=== PATIENT | female | born 1970 | race Caucasian/White ===

== ENCOUNTER 2021-06-29 12:17 | Emergency (ER) | payer SELFPAY ==
[2021-06-29] MEDS ORDERED: dexAMETHasone 10 MG/ML VIAL ONE (13:32)
[2021-06-29] MEDS ORDERED: CYCLOBENZAPRINE 10 MG TAB ONE (13:32)
--- NOTE | 2021-06-29 13:43 | RAD REPORT ---
EXAM DESCRIPTION: CT - Stone Protocol - 06/29/2021 1:26 pm CLINICAL HISTORY: Flank pain. right flank pain COMPARISON: No comparisons TECHNIQUE: Axial images were obtained without oral or IV contrast. Lack of contrast limits solid org an and vascular assessment. The [id number] spans the entirety of the system partially obscuring uppermost abdomen and lung bases. Coronal reformatted images were obtained and reviewed. All CT scans are performed using dose optimization technique as appropriate and may include automated exposure control or mA/KV adjustment according to patient size. FINDINGS: Mild linear atelectasis is present in the posterior left base. Low-density hepatic lesions are present favored to represent cysts. No aggressive liver lesion or deepthi iary dilatation. The spleen is unremarkable. The pancreas and adrenal glands are normal. No pathologi c lymphadenopathy in the abdomen or pelvis. No urinary tract stones or obstructive uropathy. No bowel obstruction, free air, free fluid or abscess. Normal appendix noted. Moderate lower lumbar degenerative changes are present. IMPRESSION: No urinary tract stones or obstructive uropathy.
[2021-06-29 13:59] LABS: Urine Blood Negative (Negative); Urine Glucose Negative (Negative); Urine Protein Negative (Negative); Urine Specific Gravity 1.015 (1.005-1.030)
--- NOTE | 2021-06-29 14:46 | ER ---
Nurse's Notes [facility] Name: Laisha Carl Age: 51 yrs Sex: Female : 1970 Arrival Date: 06/29/2021 Time: 12:22 Bed 24 Private MD: Diagnosis: Intervertebral disc disorders with radiculopathy, lumbar region Presentation: 06/29 12:30 Chief complaint: Patient states: R lower back pain for 2 days. Pain radiates into R ll1 leg. No trauma or falls. States she feels anxious for about 1 hour. Noticed dysuria yesterday. Coronavirus screen: Vaccine status: Patient reports receiving the 2nd dose of the covid vaccine. Client denies travel out of the [place] in the last 14 days. At this time, the client does not indicate any symptoms associated with coronavirus-19. Ebola Screen: Patient denies travel to an Ebola-affected area in the 21 days before illness onset. Initial Sepsis Screen: Does the patient meet any 2 criteria? No. Patient's initial sepsis screen is negative. Does the patient have a suspected source of infection? Yes: Bone or joint infection. Risk Assessment: Do you want to hurt yourself or someone else? Patient reports no desire to harm self or others. Onset of symptoms was June 28, 2021. 12:30 Method Of Arrival: Wheelchair ll1 12:30 Acuity: VERONICA 3 ll1 Triage Assessment: 14:43 General: Appears uncomfortable, Behavior is cooperative, appropriate for age. oh 14:44 Musculoskeletal: Swelling. 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 - Social history:: Smoking status: Patient reports the use of cigarette tobacco products, smokes one-half pack cigarettes per day, Reported history of juuling and/or vaping. - Family history:: not pertinent. - Hospitalizations: : No recent hospitalization is reported. Screenin:43 Abuse screen: Denies threats or abuse. Nutritional screening: No deficits noted. oh Tuberculosis screening: No symptoms or risk factors identified. Fall Risk Gait-. Assessment: 14:41 Musculoskeletal: Reports pain in back lower pt denies any recent injury. pt has a patch oh to back to soothe her pain. difficulty with ambulation. Vital Signs: 12:30 BP 136 / 81; Pulse 63; Resp 16; Temp 97.6; Pulse Ox 100% ; Weight 79.38 kg; Height 5 ll1 ft. 8 in. (172.72 cm); Pain 9/10; 14:57 BP 107 / 66; Pulse 71; Resp 16; Pulse Ox 100% on R/A; oh 12:30 Body Mass Index 26.61 (79.38 kg, 172.72 cm) ll1 ED Course: 12:22 Patient arrived in ED. mr 12:33 Triage completed. ll1 12:34 Arm band placed on Patient placed in an exam room, on a stretcher. ll1 12:38 Arvind Martell MD is Attending Physician. rn 13:05 Jose Maria Mejía, TAYLOR is Primary Nurse. oh 13:26 CT Stone Protocol In Process Unspecified. EDOK 14:43 Bed in low position. Call light in reach. oh 14:57 Patient did not have IV access during this emergency room visit. oh 14:57 No provider procedures requiring assistance completed. oh Administered Medications: 13:13 Drug: Decadron (dexamethasone) 10 mg Route: IM; Site: right gluteus; oh 13:14 Drug: Flexeril (cyclobenzaprine) 10 mg Route: PO; oh Outcome: 14:46 Discharge ordered by . rn 14:57 Discharged to home ambulatory. oh 14:57 Condition: stable 14:57 Discharge instructions given to patient. 14:58 Patient left the ED. oh Signatures: Dispatcher [employer] [facility] DouglasLizett mr Arvind Martell MD MD rn Lewis, Lynsay, RN RN 1 Jose Maria Mejía, TAYLOR RN oh Corrections: (The following items were deleted from the chart) 12:41 12:30 Chief complaint: Patient states: R lower back pain for 2 days. Pain radiates into ll1 R leg. States she feels anxious for about 1 hour. Noticed dysuria yesterday. ll1
--- NOTE | 2021-06-29 14:46 | EDPHYS ---
Physician Documentation [facility] Name: Laisha Carl Age: 51 yrs Sex: Female : 1970 Arrival Date: 06/29/2021 Time: 12:22 Bed 24 Private MD: ED Physician Arvind Martell HPI: 06/29 14:42 This 51 yrs old Female presents to ER via Wheelchair with complaints of Back rn Pain. 14:42 The patient presents with pain that is acute. The patient presents with pain that is consultant rn, with no known mechanism of injury. The symptoms are located in the low back. Onset: The symptoms/episode began/occurred 2 day(s) ago. The pain radiates to the right leg. Associated signs and symptoms: Pertinent negatives: abdominal pain, dysuria, fever, hematuria, incontinence, nausea, numbness, tingling. Associated signs and symptoms: Pertinent negatives: urinary retention. The problem was sustained without known cause. Modifying factors: The patient symptoms are alleviated by nothing, the patient symptoms are aggravated by any movement. Severity of symptoms: At their worst the symptoms were moderate, in the emergency department the symptoms are unchanged. The patient has experienced similar episodes in the past. The patient has not recently seen a physician. Patient reports right lower back pain that radiates down right leg for the last 2 days. No acute trauma. No injury. Denies any urinary or bowel incontinence or retention. Reports has been seen for this and x-ray was okay went to a chiropractor but could not tolerate manipulation. Here because of increased pain over the last 2 days.. 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 - Social history:: Smoking status: Patient reports the use of cigarette tobacco products, smokes one-half pack cigarettes per day, Reported history of juuling and/or vaping. - Family history:: not pertinent. - Hospitalizations: : No recent hospitalization is reported. ROS: 14:42 Constitutional: Negative for fever, chills, and weight loss, Eyes: Negative for injury, rn pain, redness, and discharge, Neck: Negative for injury, pain, and swelling, Cardiovascular: Negative for chest pain, palpitations, and edema, Respiratory: Negative for shortness of breath, cough, wheezing, and pleuritic chest pain, Abdomen/GI: Negative for abdominal pain, nausea, vomiting, diarrhea, and constipation, Back: Positive for right lower back pain : Negative for injury, bleeding, discharge, and swelling, MS/Extremity: Positive for right lower extremity pain Skin: Negative for injury, rash, and discoloration, Neuro: Negative for headache, weakness, numbness, tingling, and seizure. Exam: 14:42 Constitutional: This is a well developed, well nourished patient who is awake, alert, rn appears uncomfortable Cardiovascular: Regular rate and rhythm. No pulse deficits. Respiratory: No increased work of breathing, no retractions or nasal flaring. Abdomen/GI: Soft, nontender Back: No spinal tenderness. No costovertebral tenderness. Painful twisting range of motion and mild tenderness right lower back Skin: Warm, dry with normal turgor. Normal color with no rashes, no lesions, and no evidence of cellulitis. MS/ Extremity: Pulses equal, no cyanosis. Neurovascular intact. Full, normal range of motion. Equal circumference. Positive straight leg raise and opposite leg raise Neuro: Awake and alert, GCS 15, oriented to person, place, time, and situation. Cranial nerves II-XII grossly intact. Motor strength 5/5 in all extremities. Sensory grossly intact. Cerebellar exam normal. Vital Signs: 12:30 BP 136 / 81; Pulse 63; Resp 16; Temp 97.6; Pulse Ox 100% ; Weight 79.38 kg; Height 5 ll1 ft. 8 in. (172.72 cm); Pain 9/10; 14:57 BP 107 / 66; Pulse 71; Resp 16; Pulse Ox 100% on R/A; oh 12:30 Body Mass Index 26.61 (79.38 kg, 172.72 cm) ll1 MDM: 12:38 Patient medically screened. rn 14:42 Differential diagnosis: arthritis, chronic back pain, Osteoarthritis Ureterolithiasis rn Radiculopathy. Data reviewed: vital signs, nurses notes, lab test result(s), radiologic studies, CT scan, and as a result, I will discharge patient. Counseling: I had a detailed discussion with the patient and/or guardian regarding: the historical points, exam findings, and any diagnostic results supporting the discharge/admit diagnosis, lab results, radiology results, the need for outpatient follow up, to return to the emergency department if symptoms worsen or persist or if there are any questions or concerns that arise at home. Response to treatment: the patient's symptoms have mildly improved after treatment, and as a result, I will discharge patient. Special discussion: I discussed with the patient/guardian in detail that at this point there is no indication for admission to the hospital. It is understood, however, that if the symptoms persist or worsen the patient needs to return immediately for re-evaluation. Based on the history and exam findings, there is no indication for further emergent testing or inpatient evaluation. I discussed with the patient/guardian the need to see the back specialist for further evaluation of the symptoms. I discussed with the patient/guardian the need to see the primary care provider for further evaluation of the symptoms. 06/29 13:59 Order name: Urine Dipstick-Ancillary; Complete Time: 14:42 EDMS 06/29 12:49 Order name: CT Stone Protocol; Complete Time: 14:42 rn 06/29 13:46 Order name: Urine Dipstick-Ancillary (obtain specimen); Complete Time: 14:32 rn Administered Medications: 13:13 Drug: Decadron (dexamethasone) 10 mg Route: IM; Site: right gluteus; oh 13:14 Drug: Flexeril (cyclobenzaprine) 10 mg Route: PO; oh Disposition Summary: 06/29/21 14:46 Discharge Ordered Location: Home rn Problem: an ongoing problem rn Symptoms: have improved rn Condition: Stable rn Diagnosis - Intervertebral disc disorders with radiculopathy, lumbar region rn Followup: rn - With: Private Physician - When: As needed - Reason: Recheck today's complaints, Re-evaluation by your physician Discharge Instructions: - Discharge Summary Sheet rn - Lumbosacral Radiculopathy rn Forms: - Medication Reconciliation Form rn - Thank You Letter rn - 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
[2021-06-29 15:02] VITALS: TEMP 97.6; O2SAT 100
[2021-06-29 15:04] VITALS: BP 107/66
== END 2021-06-29 14:58 | disposition home or self-care (01) ==
LOC: ER 12:17
DX: M51.16 Intervertebral disc disorders with radiculopathy, lumbar region (principal); F17.210 Nicotine dependence, cigarettes, uncomplicated
CPT/HCPCS: 74176; 76377; 81003; 96372; 99283; J1100

== ENCOUNTER 2022-08-29 23:03 | Emergency (ER) | payer SELFPAY ==
--- OUTSIDE RECORDS SUMMARY | 2022-08-29 23:06 | XMS REPORT | Continuity of Care Document ---
:1970 Author Organization [facility] t Address [address] [place] [address] Dr. Sanchez [address] [place] [id number] Care Team Providers Name Role Phone EUGENIA KENDALL Attending Clinician Unavailable ALIREZA Attending Clinician Unavailable Eugenia Kendall Attending Clinician [phone] ADAN Attending Clinician Unavailable GABO Attending Clinician Unavailable Mariia Lorenzana Attending Clinician [phone] FAIZA_Abby Admitting Clinician Unavailable ADAN Admitting Clinician Unavailable GABO Admitting Clinician Unavailable Payers Payer Name Policy Type Policy Number Effective Date Expiration Date S ource Problems Condition Condition Condition Status Onset Resolution Last Treating Co mments Source Name Details Category Date Date Treatment Clinician Date Excessive Excessive Problem Active Swe salty growth of Growth of 7-11 Comm uni facial Facial 00:00: ty hair Hair 00 Hospita Clinics Hyperlipid Hyperlipid Problem Active S weeny emia emia 5-17 Communi 00:00: ty 00 Hospita Clinics Mixed Mixed Problem Active [place] anxiety Anxiety 5-05 Communi and and 00:00: ty depressive Depressive 00 Ho spita disorder Disorder l Clinics Maxillary Maxillary Problem Active Swe salty sinusitis Sinusitis 5-05 Comm uni 00:00: ty 00 Hospita Clinics Has a sore Has a Sore Problem Active S weeny throat Throat 5-05 Communi 00:00: ty Hospita Clinics Depressive Depressive Problem Active S weeny disorder Disorder 5-15 Commun i 00:00: ty 00 Hospita Clinics Vertigo Vertigo Problem Active [place] 5-15 [facility]i 00:00: ty 00 [facility]ospita Clinics Anxiety Anxiety Problem Active [place] 1-27 Communi 00:00: ty 00 Hospita Clinics Allergies, Adverse Reactions, Alerts This patient has no known allergies or adverse reactions. Social History Smoking Status Start Date Stop Date Source Light Tobacco Smoker [facility]ail [facility] Medications Ordered Filled Start Stop Current Ordering Indication Dosage Frequency Signature Comments Components Source Medication Medication Date Date Medication? Clinician (SIG) Name Name Kenalog 40 Kenalog 40 No Kenalog 40 [place] mg/mL mg/mL 7-21 mg/mL Communi suspension suspension 16:10: suspension ty for for 00 for Hospita injectionTa injectionTa injectionT l ke 60 mg by ke 60 mg by cesia 60 mg Clinics injection injection by route as route as injection directed directed route as for 1 day. for 1 day. directed for 1 day. meclizine meclizine No meclizine [place] 12.5 mg 12.5 mg 12.5 mg Commun i tablet TK 1 tablet TK 1 tablet TK ty T PO TID T PO TID 1 T PO TID H ospita PRN PRN PRN l [facility] paroxetine paroxetine No paroxetine [place] ER 12.5 mg ER 12.5 mg ER 12.5 mg Communi tablet,exte tablet,exte tablet,ext ty nded nded ended Hospita release 24 release 24 release 24 l hr TAKE 1 hr TAKE 1 hr TAKE 1 Clinics TABLET BY TABLET BY TABLET BY MOUTH ONCE MOUTH ONCE MOUTH ONCE DAILY DAILY DAILY DIRECTED DIRECTED DIRECTED FOR 30 DAYS FOR 30 DAYS FOR 30 DAYS amoxicillin amoxicillin No 1 Q12H amoxicilli [place] 875 mg 875 mg n 875 mg Communi tablet Take tablet Take tablet ty 1 tablet 1 tablet Take 1 Hospi ta every 12 every 12 tablet l hours by hours by every 12 Cli nics oral route oral route hours by as directed as directed oral route for 7 days. for 7 days. as directed for 7 days. fenofibrate fenofibrate No fenofibrat [place] nanocrystal nanocrystal e C ommuni lized 48 mg lized 48 mg nanocrysta ty tablet TAKE tablet TAKE llized 48 Hospita 1 TABLET BY 1 TABLET BY mg tablet l MOUTH ONCE MOUTH ONCE TAKE 1 C linics DAILY AT DAILY AT TABLET BY BEDTIME BEDTIME MOUTH ONCE DAILY AT BEDTIME Kenalog 40 Kenalog 40 No 60mg Kenalog 40 [place] mg/mL mg/mL mg/mL Communi suspension suspension suspension ty for for for Hospita injection injection injection l Take 60 mg Take 60 mg Take 60 mg Clinics by by by injection injection injection route as route as route as directed directed directed for 1 day. for 1 day. for 1 day. paroxetine paroxetine No paroxetine [place] ER 12.5 mg ER 12.5 mg ER 12.5 mg Communi tablet,exte tablet,exte tablet,ext ty nded nded ended Hospita release 24 release 24 release 24 l hr TAKE 1 hr TAKE 1 hr TAKE 1 Clinics TABLET BY TABLET BY TABLET BY MOUTH ONCE MOUTH ONCE MOUTH ONCE DAILY DAILY DAILY DIRECTED DIRECTED DIRECTED FOR 30 DAYS FOR 30 DAYS FOR 30 DAYS cyclobenzap cyclobenzap No cyclobenza [place] rine 10 mg rine 10 mg leighton 10 Communi tablet tablet mg tablet ty Hospita l Clinics fenofibrate fenofibrate No fenofibrat [place] nanocrystal nanocrystal e C ommuni lized 48 mg lized 48 mg nanocrysta ty tablet TAKE tablet TAKE llized 48 Hospita 1 TABLET BY 1 TABLET BY mg tablet l MOUTH ONCE MOUTH ONCE TAKE 1 C linics DAILY AT DAILY AT TABLET BY BEDTIME BEDTIME MOUTH ONCE DAILY AT BEDTIME meclizine meclizine No 1 TID meclizine [place] 12.5 mg 12.5 mg 12.5 mg Commun i tablet Take tablet Take tablet ty 1 tablet 3 1 tablet 3 Take 1 H ospita times a day times a day tablet 3 l by oral by oral times a Clinic s route as route as day by needed for needed for oral route 30 days. 30 days. as needed for 30 days. paroxetine paroxetine No paroxetine [place] ER 12.5 mg ER 12.5 mg ER 12.5 mg Communi tablet,exte tablet,exte tablet,ext ty nded nded ended Hospita release 24 release 24 release 24 l hr TAKE 1 hr TAKE 1 hr TAKE 1 Clinics TABLET BY TABLET BY TABLET BY MOUTH ONCE MOUTH ONCE MOUTH ONCE DAILY DAILY DAILY DIRECTED DIRECTED DIRECTED FOR 90 DAYS FOR 90 DAYS FOR 90 DAYS spironolact spironolact No 1 Q1D spironolac [place] one 50 mg one 50 mg tone 50 mg Communi tablet Take tablet Take tablet ty 1 tablet 1 tablet Take 1 Hospi ta every day every day tablet l by oral by oral every day Clin ics route for route for by oral 90 days. 90 days. route for 90 days. cyclobenzap cyclobenzap No cyclobenza [place] rine 10 mg rine 10 mg leighton 10 Communi tablet [facility] fenofibrate No fenofibrat [place] nanocrystal nanocrystal e C ommuni lized 48 mg lized 48 mg nanocrysta ty tablet TAKE tablet TAKE llized 48 Hospita 1 TABLET BY 1 TABLET BY mg tablet l MOUTH ONCE MOUTH ONCE TAKE 1 C linics DAILY AT DAILY AT TABLET BY BEDTIME BEDTIME MOUTH ONCE DAILY AT BEDTIME meclizine meclizine No 1 TID meclizine [place] 12.5 mg 12.5 mg 12.5 mg Commun i tablet Take tablet Take tablet ty 1 tablet 3 1 tablet 3 Take 1 H ospita times a day times a day tablet 3 l by oral by oral times a Clinic s route as route as day by needed for needed for oral route 30 days. 30 days. as needed for 30 days. paroxetine paroxetine No paroxetine [place] ER 12.5 mg ER 12.5 mg ER 12.5 mg Communi tablet,exte tablet,exte tablet,ext ty nded nded ended Hospita release 24 release 24 release 24 l hr TAKE 1 hr TAKE 1 hr TAKE 1 Clinics TABLET BY TABLET BY TABLET BY MOUTH ONCE MOUTH ONCE MOUTH ONCE DAILY DAILY DAILY DIRECTED DIRECTED DIRECTED FOR 90 DAYS FOR 90 DAYS FOR 90 DAYS spironolact spironolact No spironolac [place] one 50 mg one 50 mg tone 50 mg Communi tablet TAKE tablet TAKE tablet ty 1 TABLET BY 1 TABLET BY TAKE 1 Hospita MOUTH ONCE MOUTH ONCE TABLET BY l DAILY FOR DAILY FOR MOUTH ONCE Clinics 90 DAYS 90 DAYS DAILY FOR 90 DAYS cyclobenzap cyclobenzap No cyclobenza [place] rine 10 mg rine 10 mg leighton 10 Communi tablet tablet mg tablet ty [facility] fenofibrate fenofibrate No fenofibrat [place] nanocrystal nanocrystal e C ommuni lized 48 mg lized 48 mg nanocrysta ty tablet TAKE tablet TAKE llized 48 Hospita 1 TABLET BY 1 TABLET BY mg tablet l MOUTH ONCE MOUTH ONCE TAKE 1 C linics DAILY AT DAILY AT TABLET BY BEDTIME BEDTIME MOUTH ONCE DAILY AT BEDTIME Macrobid Macrobid No 1capsul Q12H Macrobid [place] 100 mg 100 mg e(s) 100 mg Communi capsule capsule capsule ty Take 1 Take 1 Take 1 Hospita capsule capsule capsule l every 12 every 12 every 12 Cli nics hours by hours by hours by oral route oral route oral route for 5 days. for 5 days. for 5 days. meclizine meclizine No 1 TID meclizine [place] 12.5 mg 12.5 mg 12.5 mg Commun i tablet Take tablet Take tablet ty 1 tablet 3 1 tablet 3 Take 1 H ospita times a day times a day tablet 3 l by oral by oral times a Clinic s route as route as day by needed for needed for oral route 30 days. 30 days. as needed for 30 days. Medrol Medrol No 1dose Medrol [place] (Sherwin) 4 mg (Sherwin) 4 mg pk(s) (Sherwin) 4 mg Communi tablets in tablets in tablets in ty a dose pack a dose pack a dose Hospita Take 1 dose Take 1 dose pack Take l pk by oral pk by oral 1 dose pk Clinics route as route as by oral directed. directed. route as directed. montelukast montelukast No 1 Q1D montelukas [place] 10 mg 10 mg t 10 mg Communi tablet Take tablet Take tablet ty 1 tablet 1 tablet Take 1 Hospi ta every day every day tablet l by oral by oral every day Clin ics route. route. by oral route. paroxetine paroxetine No paroxetine [place] ER 12.5 mg ER 12.5 mg ER 12.5 mg Communi tablet,exte tablet,exte tablet,ext ty nded nded ended Hospita release 24 release 24 release 24 l hr TAKE 1 hr TAKE 1 hr TAKE 1 Clinics TABLET BY TABLET BY TABLET BY MOUTH ONCE MOUTH ONCE MOUTH ONCE DAILY DAILY DAILY DIRECTED DIRECTED DIRECTED FOR 90 DAYS FOR 90 DAYS FOR 90 DAYS Ubrelvy 100 Ubrelvy 100 No 1 Ubrelvy [place] mg tablet mg tablet 100 mg Com luis Take 1 Take 1 tablet ty tablet by tablet by Take 1 Hos rosaura oral route oral route tablet by l as needed. as needed. oral route Clinics as needed. amoxicillin amoxicillin No amoxicilli [place] 875 mg 875 mg n 875 mg Communi tablet TAKE tablet TAKE tablet ty 1 TABLET BY 1 TABLET BY TAKE 1 Hospita MOUTH EVERY MOUTH EVERY TABLET BY l 12 HOURS 12 HOURS MOUTH Clinics DIRECTED DIRECTED EVERY 12 FOR 7 DAYS FOR 7 DAYS HOURS DIRECTED FOR 7 DAYS fenofibrate fenofibrate No fenofibrat [place] nanocrystal nanocrystal e C ommuni lized 48 mg lized 48 mg nanocrysta ty tablet TAKE tablet TAKE llized 48 Hospita 1 TABLET BY 1 TABLET BY mg tablet l MOUTH ONCE MOUTH ONCE TAKE 1 C linics DAILY AT DAILY AT TABLET BY BEDTIME BEDTIME MOUTH ONCE DAILY AT BEDTIME Vital Signs Vital Name Observation Time Observation Value Comments Source BP Diastolic 2022-04-24 00:00:00 66 mm[Hg] [facility] Height 2022-04-24 00:00:00 67.5 [in_i] [facility] BMI (Body Mass 2022-04-24 00:00:00 25 kg/m2 [facility] s BP Systolic 2022-04-24 00:00:00 116 mm[Hg] [facility] s Body Weight 2022-04-24 00:00:00 2594.4 [oz_av] [facility] s BP Diastolic 2022-01-24 00:00:00 71 mm[Hg] [facility] Height 2022-01-24 00:00:00 67.5 [in_i] [facility] s BMI (Body Mass 2022-01-24 00:00:00 25.9 kg/m2 [facility] s BP Systolic 2022-01-24 00:00:00 103 mm[Hg] [facility] Body Weight 2022-01-24 00:00:00 2690.4 [oz_av] [facility] s BP Diastolic 2021-11-22 00:00:00 75 mm[Hg] [facility] Height 2021-11-22 00:00:00 67.5 [in_i] [facility] BMI (Body Mass 2021-11-22 00:00:00 27.5 kg/m2 [facility]) [facility] BP Systolic 2021-11-22 00:00:00 121 mm[Hg] [facility] s Body Weight 2021-11-22 00:00:00 2847 [oz_av] [facility] s BP Diastolic 2021-04-10 00:00:00 74 mm[Hg] [facility] s Height 2021-04-10 00:00:00 67.5 [in_i] [facility] s BMI (Body Mass 2021-04-10 00:00:00 27.1 kg/m2 [facility]) [facility] s BP Systolic 2021-04-10 00:00:00 127 mm[Hg] [facility] s Body Weight 2021-04-10 00:00:00 2812.8 [oz_av] [facility] s BP Diastolic 2021-01-29 00:00:00 79 mm[Hg] [facility] s Height 2021-01-29 00:00:00 67.5 [in_i] [facility] s BP Systolic 2021-01-29 00:00:00 116 mm[Hg] [facility] s Procedures Procedure Date / Time Performed Performing Clinician Sour e MAMMO, screening, 2022-01-24 00:00:00 [facility] electrocardiogram, 2021-01-23 00[facility]00[facility] [place] min Excision of Part of [place] [facility] Right Breast [facility] Breast Surgery [facility] Plan of Care Planned Activity Planned Date Details Comments Source Diagnostic Test 2021-01-29 lipid panel w/ [facility] Pending 00:00:00 direct LDL, serum [facility] jeana [code = lipid panel w/ direct LDL, serum] Diagnostic Test 2021-01-29 CBC w/ manual diff [facility] Pending 00:00:00 [code = CBC w/ Hospital Clin ics manual diff] Diagnostic Test 2021-01-29 hepatitis (A+B+C) [facility] Pending 00:00:00 panel, serum [code Hospital Clinics = hepatitis (A+B+C) panel, serum] Diagnostic Test 2021-01-29 CMP, serum or [place] [facility] Pending 00:00:00 plasma [code = CMP, Hospital Clinics serum or plasma] Instructions [place] [facility] Encounters Start End Encounter Admission Attending Care Care Encounter Source Date/Time Date/Time Type Type Clinicians Facility Department ID 2022-09-05 Inpatient EMMA KENDALL [facility] [id number] [place] 10:00:00 EUGENIA [id number] [facility] 2022-08-29 2022-08-29 [id number] [place] 00:00:00 00:00:00 209 [facility] i [facility] Clinics 2022-04-24 2022-04-24 Outpatient FAIZA_[facility] [id number] [place] 00:00:00 00:00:00 804 Commun i ty Hospita l Clinics 2022-04-24 2022-04-24 [facility] [place] 00:00:00 00:00:00 Faiza, [facility] MSN, GRADE TAMPER, Hospital - ty THERAPEUTIC RIDING INSTRUCTOR-C: [address] [place] [facility], Clinic s [address], [facility] [address], [place], [place] MSN, THERAPEUTIC RIDING INSTRUCTOR-C [id number] , Ph. 2022-04-24 2022-04-24 Outpatient Faiza [facility] [id number] 00:00:00 00:00:00 Eugenia [id number] 2022-04-23 2022-04-23 Outpatient FAIZA_[facility] [id number] [place] 00:00:00 00:00:00 803 Commun i ty Hospita l Clinics 2022-01-24 2022-01-24 Outpatient FAIZA_C [facility] [id number] [place] 11:31:00 11:31:00 506 Commun i ty Hospita l Clinics 2022-01-24 2022-01-24 Outpatient Faiza [facility] [id number] 00:00:00 00:00:00 Eugenia [id number] 2022-01-24 2022-01-24 [facility] [place] 00:00:00 00:00:00 Faiza [facility] MSN, GRADE TAMPER, Hospital - ty THERAPEUTIC RIDING INSTRUCTOR-C: [address] [place] [facility] [address], [facility] [address], [place] MSN, THERAPEUTIC RIDING INSTRUCTOR-C [id number] , Ph. 2022-01-23 2022-01-23 Outpatient FAIZA_Abby [facility] [id number] [place] 12:35:00 12:35:00 505 Commun i ty Hospita l Clinics 2021-11-22 2021-11-22 Outpatient SISSON_Abby [facility] [id number] [place] 10:13:00 10:13:00 304 Commun i ty Hospita l Clinics 2021-11-22 2021-11-22 Outpatient Faiza [facility] [id number] 00:00:00 00:00:00 Eugenia [id number] 2021-11-22 2021-11-22 [facility] [place] 00:00:00 00:00:00 Faiza [facility] MSN, GRADE TAMPER, Hospital - ty THERAPEUTIC RIDING INSTRUCTOR-C: [address] [place] Hos[facility] N[facility], Clinic s [address], [facility] [address], [place] MSN, THERAPEUTIC RIDING INSTRUCTOR-C [phone] , Ph. 2021-11-20 2021-11-20 Outpatient SISSON_C [facility] [id number] [place] 11:52:00 11:52:00 302 Commun i ty Hospita l Clinics 2021-10-11 2021-10-11 Outpatient WATERS_S [facility] [id number] [place] 12:45:00 12:45:00 121 Commun i ty Hospita l Clinics 2021-09-25 2021-09-25 Outpatient WATERS_S [facility] [id number] [place] 05:04:00 05:04:00 105 Commun i ty Hospita l Clinics 2021-06-26 2021-06-26 [facility] 68 [place] 12:30:00 12:30:00 _L 006 Commun i ty Hospita l Clinics 2021-04-10 2021-04-10 Outpatient [facility] 68 [place] 05:07:00 05:07:00 _L 721 Commun i ty Hospita l Clinics 2021-04-10 2021-04-10 Outpatient [facility] [id number] 00:00:00 00:00:00 , Mariia [id number] Neida [id number] 2021-04-10 2021-04-10 Mariia Carrasquillo [facility] [place] 21 [place] 00:00:00 00:00:00 [facility] LORENZO harringtonP-C: [address], [place] [address] , Ph. 2021-03-05 2021-03-05 Outpatient [facility] [id number] [place] 03:00:00 03:00:00 _L 615 Commun i ty Hosp[facility] Clinics 2021-01-29 2021-01-29 Outpatient [facility] [id number] [place] 03:36:00 03:36:00 _L 511 Commun i ty Hospita l Clinics 2021-01-29 2021-01-29 Outpatient [facility] [id number] 00:00:00 00:00:00 , Mariia [id number] Neida [id number] 2021-01-29 2021-01-29 Mariia Carrasquillo [facility] [place] [facility] [place] [id number] [place] 00:00:00 [facility] Hospital - ty [address] [facility] [address], [place] [address] , Ph. 2021-01-29 2021-01-29 Outpatient [facility] 24a [id number] 00:00:00 00:00:00 , Mariia [id number] Neida [id number] 2021-01-24 2021-01-24 Outpatient [facility] [id number] [place] 12:18:00 12:18:00 _L 506 Commun i ty Hospita l Clinics 2021-01-23 2021-01-23 Outpatient [facility] [id number] [place] 10:40:00 10:40:00 _L 505 Commun i ty Hospita l Clinics 2021-01-23 2021-01-23 Outpatient [facility] [id number] 00:00:00 00:00:00 , Mariia [id number] Neida [id number] 2021-01-23 2021-01-23 Juliana [facility] [place] [facility] [place] [id number] [place] 00:00:00 [facility] Hospital - ty [address] [facility] [address], [place] [address] , Ph. 2021-01-22 2021-01-22 Outpatient [facility] 863 - [place] 03:16:00 03:16:00 _L 504 Commun i ty Hospita l Clinics Results This patient has no known results.
[2022-08-30 00:22] LABS: Hematocrit 38.1 % (36.0-45.0); Lymphocytes % 32.9 % (15.3-44.8); MCV 88.5 fL (80-100); MPV 7.7 fL (7.6-11.3)
[2022-08-30 00:44] LABS: Potassium 3.8 mmol/L (3.5-5.1); Troponin High Sensitivity 3.4 pg/mL (<58.9)
--- NOTE | 2022-08-30 04:00 | EDPHYS ---
Physician Documentation [facility] Name: Laisha Carl Age: 52 yrs Sex: Female : 1970 Arrival Date: 08/29/2022 Time: 23:05 Bed 5 Private MD: ED Physician Mirza Machado HPI: 08/30 03:21 This 52 yrs old Female presents to ER via Ambulatory with complaints of Chest Pain > 30 kdr y/o. 03:21 Patient complains of dizziness and chest pain along with shortness of breath that kdr started about 45 minutes prior to arrival. Patient's had similar episodes like this before and over the past few weeks has been seen by several physicians including at [facility] and elsewhere. Patient again presents to healthcare facility complaining of dizziness preceded by chest discomfort and shortness of breath. At the time of initial evaluation appears to have resolved.. Onset: The symptoms/episode began/occurred suddenly, just prior to arrival. Severity of symptoms: At their worst the symptoms were moderate in the emergency department the symptoms have improved moderately. The patient has experienced similar episodes in the past, multiple times, today's symptoms are similar. The patient has been recently seen by a physician: with similar presenting complaints, but the patient's symptoms have persisted. Historical: - Allergies: 08/29 23:19 No Known Drug Allergies; hb - PMHx: 23:19 Hypercholesterolemia; hb - Immunization history:: Adult Immunizations up to date. - Social history:: Smoking status: . ROS: 08/30 03:21 Constitutional: Negative for fever, chills, and weight loss, Eyes: Negative for injury, kdr pain, redness, and discharge, ENT: Negative for injury, pain, and discharge, Neck: Negative for injury, pain, and swelling, Abdomen/GI: Negative for abdominal pain, nausea, vomiting, diarrhea, and constipation, Back: Negative for injury and pain, : Negative for injury, bleeding, discharge, and swelling, MS/Extremity: Negative for injury and deformity, Skin: Negative for injury, rash, and discoloration, Neuro: Negative for headache, weakness, numbness, tingling, and seizure activity. Allergy/Immunology: Negative for hives, rash, and allergies, Endocrine: Negative for neck swelling, polydipsia, polyuria, polyphagia, and marked weight changes, Hematologic/Lymphatic: Negative for swollen nodes, abnormal bleeding, and unusual bruising. Cardiovascular: Positive for chest pain, Negative for edema, orthopnea, palpitations, paroxysmal nocturnal dyspnea. Respiratory: Positive for shortness of breath, Negative for cough, dyspnea on exertion, hemoptysis, orthopnea, pleurisy, sputum production, wheezing. Exam: 03:21 Constitutional: This is a well developed, well nourished patient who is awake, alert, kdr and in no acute distress. Head/Face: Normocephalic, atraumatic. Eyes: Pupils equal round and reactive to light, extra-ocular motions intact. Lids and lashes normal. Conjunctiva and sclera are non-icteric and not injected. Cornea within normal limits. Periorbital areas with no swelling, redness, or edema. Neck: Trachea midline, no thyromegaly or masses palpated, and no cervical lymphadenopathy. Supple, full range of motion without nuchal rigidity, or vertebral point tenderness. No Meningismus. Chest/axilla: Normal chest wall appearance and motion. Nontender with no deformity. No lesions are appreciated. Cardiovascular: Regular rate and rhythm with a normal S1 and S2. No gallops, murmurs, or rubs. Normal PMI, no JVD. No pulse deficits. Respiratory: Lungs have equal breath sounds bilaterally, clear to auscultation and percussion. No rales, rhonchi or wheezes noted. No increased work of breathing, no retractions or nasal flaring. Abdomen/GI: Soft, non-tender, with normal bowel sounds. No distension or tympany. No guarding or rebound. No evidence of tenderness throughout. Back: No spinal tenderness. No costovertebral tenderness. Full range of motion. Skin: Warm, dry with normal turgor. Normal color with no rashes, no lesions, and no evidence of cellulitis. MS/ Extremity: Pulses equal, no cyanosis. Neurovascular intact. Full, normal range of motion. Neuro: Awake and alert, GCS 15, oriented to person, place, time, and situation. Cranial nerves II-XII grossly intact. Motor strength 5/5 in all extremities. Sensory grossly intact. Cerebellar exam normal. Normal gait. Psych: Awake, alert, with orientation to person, place and time. Behavior, mood, and affect are within normal limits. Vital Signs: 08/29 23:18 BP 142 / 95; Pulse 80; Resp 16; Temp 98.3; Pulse Ox 100% on R/A; Weight 75.75 kg; hb Height 5 ft. 8 in. (172.72 cm); Pain 8/10; 12 01:01 BP 115 / 71; Pulse 68; Resp 20; Temp 98.2; Pulse Ox 98% on R/A; Pain 0/10; ke1 02:54 BP 106 / 60; Pulse 78; Resp 17; Temp 98.1; Pulse Ox 98% on R/A; Pain 0/10; ke1 03:58 BP 103 / 67; Pulse 63; Resp 17; Temp 98; Pulse Ox 99% ; Pain 0/10; ke1 12 23:18 Body Mass Index 25.39 (75.75 kg, 172.72 cm) hb MDM: 03:21 Data reviewed: vital signs, nurses notes, lab test result(s), radiologic studies. kdr Counseling: I had a detailed discussion with the patient and/or guardian regarding: the historical points, exam findings, and any diagnostic results supporting the discharge/admit diagnosis, lab results, radiology results, the need for outpatient follow up. 03:59 Patient medically screened. [facility] 08/29 23:13 Order name: Basic Metabolic Panel; Complete Time: 01:05 kdr 08/29 23:13 Order name: CBC with Diff; Complete Time: 01:05 kdr 08/29 23:13 Order name: Troponin HS; Complete Time: 01:05 kdr 08/29 23:13 Order name: XRAY Chest (1 view) kdr 08/30 00:20 Order name: CT Head Brain wo Cont kdr 08/30 02:47 Order name: Troponin HS; Complete Time: 03:57 ke1 08/29 23:13 Order name: EKG; Complete Time: 23:14 kdr 08/29 23:13 Order name: Cardiac monitoring; Complete Time: 23:32 kdr 08/29 23:13 Order name: EKG - Nurse/Tech; Complete Time: 23:32 kdr 08/29 23:13 Order name: IV Saline Lock; Complete Time: 00:14 kdr 08/29 23:13 Order name: Labs collected and sent; Complete Time: 00:14 kdr 08/29 23:13 Order name: O2 Per Protocol; Complete Time: 23:32 kdr 08/29 23:13 Order name: O2 Sat Monitoring; Complete Time: 23:32 kdr Administered Medications: No medications were administered Disposition Summary: 08/30/22 03:59 Discharge Ordered Location: Home kdr Problem: new kdr Symptoms: have improved kdr Condition: Stable kdr Diagnosis - Dizziness and giddiness kdr - Chest pain, unspecified kdr - Generalized anxiety disorder kdr Followup: kdr - With: Private Physician - When: 2 - 3 days - Reason: If symptoms return, Further diagnostic work-up, Recheck today's complaints, Continuance of care, Re-evaluation by your physician Discharge Instructions: - Discharge Summary Sheet kdr - Panic Attack kdr - Nonspecific Chest Pain, Adult, [id number] kdr - Dizziness, [id number] kdr Forms: - Medication Reconciliation Form kdr - Thank You Letter kdr Prescriptions: - Meclizine 25 mg Oral Tablet - take 1 tablet by ORAL route every 8 hours As needed; 15 tablet; Refills: 0, kdr Product Selection Permitted Signatures: Dispatcher [employer] Mirza Clark MD MD kdr Louise Benavides, RN RN Ajay Blake RN RN ke1
--- NOTE | 2022-08-30 04:00 | ER ---
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 Coronavirus hb screen: At this time, the client does not indicate any symptoms associated with coronavirus-19. Ebola Screen: No symptoms or risks identified at this time. Initial Sepsis Screen: Does the patient meet any 2 criteria? No. Patient's initial sepsis screen is negative. Does the patient have a suspected source of infection? No. Patient's initial sepsis screen is negative. Risk Assessment: Do you want to hurt yourself or someone else? Patient reports no desire to harm self or others. Onset of symptoms was August 29, 2022. 23:18 Method Of Arrival: Ambulatory hb 23:18 Acuity: VERONICA 3 hb Triage Assessment: 08/30 00:19 General: Appears in no apparent distress. Behavior is appropriate for age. ke1 Cardiovascular: Heart tones S1 S2 Capillary refill < 3 seconds Rhythm is sinus rhythm. Historical: - Allergies: 08/29 23:19 No Known Drug Allergies; hb - PMHx: 23:19 Hypercholesterolemia; hb - Immunization history:: Adult Immunizations up to date. - Social history:: Smoking status: . Screenin/10 00:14 Abuse screen: Denies threats or abuse. Nutritional screening: No deficits noted. ke1 Tuberculosis screening: No symptoms or risk factors identified. Fall Risk No fall in past 12 months (0 pts). No secondary diagnosis (0 pts). IV access (20 points). Ambulatory Aid- None/Bed Rest/Nurse Assist (0 pts). Gait- Normal/Bed Rest/Wheelchair (0 pts) Mental Status- Oriented to own ability (0 pts). Total Edward Fall Scale indicates No Risk (0-24 pts). Assessment: 00:17 Pain: Complains of pain in CHEST Pain does not radiate. Pain currently is 3 out of 10 ke1 on a pain scale. at worst was 8 out of 10 on a pain scale. level that patient reports is acceptable is 5 out of 10 on a pain scale. Pain began suddenly, 1 hour ago. 01:01 Reassessment: Patient denies pain at this time. Patient states feeling better. Patient ke1 states symptoms have improved. 02:55 Reassessment: Patient denies pain at this time. Patient states feeling better. Patient ke1 states symptoms have improved. Vital Signs: 08/29 23:18 BP 142 / 95; Pulse 80; Resp 16; Temp 98.3; Pulse Ox 100% on R/A; Weight 75.75 kg; hb Height 5 ft. 8 in. (172.72 cm); Pain 8/10; 12 01:01 BP 115 / 71; Pulse 68; Resp 20; Temp 98.2; Pulse Ox 98% on R/A; Pain 0/10; ke1 02:54 BP 106 / 60; Pulse 78; Resp 17; Temp 98.1; Pulse Ox 98% on R/A; Pain 0/10; ke1 03:58 BP 103 / 67; Pulse 63; Resp 17; Temp 98; Pulse Ox 99% ; Pain 0/10; ke1 08/29 23:18 Body Mass Index 25.39 (75.75 kg, 172.72 cm) hb ED Course: 08/29 23:05 Patient arrived in ED. bp1 23:13 Mirza Machado MD is Attending Physician. kdr 23:19 Triage completed. hb 23:19 Arm band placed on. hb 23:33 XRAY Chest (1 view) In Process Unspecified. EDMS 23:41 Missed attempt(s): 20 gauge in right antecubital area. Bleeding controlled, band aid mw2 applied, catheter tip intact. 23:49 Ajay Richardson, RN is Primary Nurse. ke1 08/30 00:14 Basic Metabolic Panel Sent. ke1 00:14 CBC with Diff Sent. ke1 00:14 Troponin HS Sent. ke1 00:14 Inserted saline lock: 20 gauge in left forearm, using aseptic technique. ke1 00:19 Bed in low position. Call light in reach. Client placed on continuous cardiac and pulse ke1 oximetry monitoring. NIBP monitoring applied. review manager on. Pulse ox on. NIBP on. 00:20 Patient maintains SpO2 saturation greater than 95% on room air. ke1 01:15 CT Head Brain wo Cont In Process Unspecified. EDMS 02:54 Troponin HS Sent. ke1 04:13 No provider procedures requiring assistance completed. IV discontinued. ke1 Administered Medications: No medications were administered Medication: 04:13 VIS not applicable for this client. ke1 Outcome: 03:59 Discharge ordered by . kdr 04:13 Discharged to home ambulatory. ke1 04:13 Condition: good 04:13 Discharge instructions given to patient. 04:14 Patient left the ED. ke1 Signatures: Dispatcher [employer] EDWA Mirza Machado MD MD [facility] Louise Benavides, RN RN Lars Barrow [facility] Ajay Richardson RN RN ke1 Corrections: (The following items were deleted from the chart) 00:19 00:17 Pain: Complains of pain in CHEST Pain currently is 3 out of 10 on a pain scale. ke1 at worst was 8 out of 10 on a pain scale. level that patient reports is acceptable is 5 out of 10 on a pain scale. ke1
[2022-08-30 17:10] VITALS: BP 103/67; TEMP 98; O2SAT 99
--- NOTE | 2022-08-31 17:23 | RAD REPORT ---
EXAM DESCRIPTION: CT - Head Brain Wo Cont - 08/30/2022 5:57 am CLINICAL HISTORY: 52 years Female dizzy COMPARISON: None TECHNIQUE: Noncontrast CT of the head. This exam was performed according to our departmental dose-optimization program, which includes autom ated exposure control, adjustment of the mA and/or kV according to patient size and/or use of iterati ve reconstruction technique.. FINDINGS: Parenchyma: No acute hemorrhage, large territorial infarction, or mass effect. Ventricles and extra-axial spaces: Appropriate for age. Visualized paranasal sinuses: Clear. Mastoid air cells: Clear. Bones: No acute focal abnormality. Additional comment: None. IMPRESSION: No acute intracranial findings. Electronically signed by: Margareth Mohr MD 08/30/2022 1:22 AM VECTOR CONTROL ASSISTANT Due to temporary technical issues with the PACS/Fluency reporting system, reports are being signed by the in house radiologists without review as a courtesy to insure prompt reporting. The interpreting radiologist is fully responsible for the content of the report.
--- NOTE | 2022-08-31 17:26 | RAD REPORT ---
EXAM DESCRIPTION: RAD - Chest Single View - 08/29/2022 11:32 pm CLINICAL HISTORY: 52 years, Female, CHEST PAIN COMPARISON: None FINDINGS: Single view of the chest was obtained portable. No prior films are available for compariso n. External EKG leads within the [id number] limits diagnosis. The cardiomediastinal silhouette dem onstrate to be unremarkable. The heart is not enlarged. The thoracic aorta is unremarkable. The pulmo nary vasculature is normal distribution. Costophrenic angles are sharp. No areas of consolidation o r masses are seen. The rest of the soft tissue and bony structures demonstrate to be unremarkable. IMPRESSION: No acute cardiopulmonary disease seen. Electronically signed by: Micheal Nixon MD 08/29/2022 11:50 PM STRATEGIC MARKETING MANAGER Due to temporary technical issues with the PACS/Fluency reporting system, reports are being signed by the in house radiologists without review as a courtesy to insure prompt reporting. The interpreting radiologist is fully responsible for the content of the report.
--- NOTE | 2022-09-01 15:02 | EKG ---
Test Date: 2022-08-29 Test Time: 23:29:08 Perinatal Technician: DAVID MEASUREMENT RESULTS: Intervals: Rate: 75 [place]: 156 QRSD: 82 QT: 372 QTc: 415 [place]: P: 62 [place]: 156 QRS: 0 T: 41 INTERPRETIVE STATEMENTS: Normal sinus rhythm Normal ECG Compared to ECG 12/27/2014 15:21:15 Sinus arrhythmia no longer present Electronically Signed On 09-01-22 14:57:29 CARE CENTER MANAGER by Elías Callahan
== END 2022-08-30 04:14 | disposition home or self-care (01) ==
LOC: ER 23:03
DX: R07.89 Other chest pain (principal); F41.1 Generalized anxiety disorder; R42 Dizziness and giddiness
CPT/HCPCS: 36415; 70450; 71045; 80048; 84484; 85025; 93005; 99285